=== PATIENT | male | born 1995 | race Caucasian/White ===

== ENCOUNTER 2016-04-05 13:36 | Outpatient (CLI) ==
[2015-10-10 09:08] VITALS: BMI 27.8
[2016-04-05 13:49] LABS: HEMATOCRIT 36.2 % (42.0-52.0); MEAN CORPUSCULAR HEMOGLOBIN 29.6 pg (27.0-31.0); MEAN CORPUSCULAR HGB CONC 33.1 (31.8-35.4); MEAN CORPUSCULAR VOLUME 89.2 fl (80.0-94.0); RED BLOOD COUNT 4.06 10^6/ul (4.70-6.10); WHITE BLOOD COUNT 9.29 K/ul (4.2-10.2)
[2016-04-05 14:05] LABS: ALBUMIN 4.1 g/dL (3.4-5.0); ANION GAP 14.7; BUN/CREATININE RATIO 14.18; CALCIUM 10.1 mg/dL (8.2-10.2); CREATININE 1.48 mg/dL (0.60-1.10); MAGNESIUM 1.8 mg/dL (1.5-2.3); PHOSPHORUS 3.3 mg/dL (2.5-4.9); POTASSIUM 4.7 mmol/L (3.5-5.1)
== END 2016-04-05 13:37 | disposition home or self-care (01) ==
LOC: LAB 13:36
PROVIDERS: ATTEND Registered Nurse
DX: Z94.0 Kidney transplant status (principal)
CPT/HCPCS: 36415; 80069; 80197; 83735; 85027

== ENCOUNTER 2016-05-10 09:40 | Outpatient (CLI) ==
[2015-10-10 09:08] VITALS: BMI 27.8
[2016-05-10 10:17] LABS: HEMATOCRIT 35.2 % (42.0-52.0); HEMOGLOBIN 11.5 g/dl (14.0-18.0); MEAN CORPUSCULAR HEMOGLOBIN 29.2 pg (27.0-31.0); MEAN CORPUSCULAR HGB CONC 32.7 (31.8-35.4); MEAN CORPUSCULAR VOLUME 89.3 fl (80.0-94.0); RED BLOOD COUNT 3.94 10^6/ul (4.70-6.10); WHITE BLOOD COUNT 9.89 K/ul (4.2-10.2)
[2016-05-10 10:25] LABS: ALBUMIN 4.2 g/dL (3.4-5.0); BUN/CREATININE RATIO 16.86; CALCIUM 10.1 mg/dL (8.2-10.2); CREATININE 2.55 mg/dL (0.60-1.10); PHOSPHORUS 3.7 mg/dL (2.5-4.9)
== END 2016-05-10 09:41 | disposition home or self-care (01) ==
LOC: LAB 09:40
PROVIDERS: ATTEND Registered Nurse
DX: Z94.0 Kidney transplant status (principal)
CPT/HCPCS: 36415; 80069; 80197; 83735; 85027

== ENCOUNTER 2016-05-31 11:31 | Outpatient (CLI) ==
[2015-10-10 09:08] VITALS: BMI 27.8
[2016-05-31 12:31] LABS: ALBUMIN 3.9 g/dL (3.4-5.0); ANION GAP 13.3; BUN/CREATININE RATIO 17.21; CALCIUM 9.7 mg/dL (8.2-10.2); CREATININE 1.51 mg/dL (0.60-1.10); MAGNESIUM 2.1 mg/dL (1.5-2.3); PHOSPHORUS 3.4 mg/dL (2.5-4.9); POTASSIUM 4.3 mmol/L (3.5-5.1)
[2016-05-31 12:33] LABS: HEMATOCRIT 36.1 % (42.0-52.0); HEMOGLOBIN 11.9 g/dl (14.0-18.0); MEAN CORPUSCULAR HEMOGLOBIN 29.4 pg (27.0-31.0); MEAN CORPUSCULAR VOLUME 89.1 fl (80.0-94.0); RED BLOOD COUNT 4.05 10^6/ul (4.70-6.10); WHITE BLOOD COUNT 5.98 K/ul (4.2-10.2)
== END 2016-05-31 11:32 | disposition home or self-care (01) ==
LOC: LAB 11:31
PROVIDERS: ATTEND Registered Nurse
DX: Z94.0 Kidney transplant status (principal)
CPT/HCPCS: 36415; 80069; 80197; 83735; 85027

== ENCOUNTER 2016-06-11 11:28 | Outpatient (CLI) ==
[2015-10-10 09:08] VITALS: BMI 27.8
== END 2016-06-11 11:29 | disposition home or self-care (01) ==
LOC: LAB 11:28
PROVIDERS: ATTEND Internal Medicine Nephrology
DX: Z94.0 Kidney transplant status (principal); Z92.25 Personal history of immunosuppression therapy
CPT/HCPCS: 36415; 87799

== ENCOUNTER 2016-07-16 12:10 | Outpatient (CLI) ==
[2015-10-10 09:08] VITALS: BMI 27.8
[2016-07-16 14:31] LABS: BASOPHILS # (AUTO) 0.1 K/uL (0-0.2); BASOPHILS % (AUTO) 0.6 % (0.0-3.0); EOSINOPHILS # (AUTO) 0.3 K/ul (0.0-0.7); EOSINOPHILS % (AUTO) 3.2 % (0.0-7.0); HEMATOCRIT 37.3 % (42.0-52.0); HEMOGLOBIN 12.8 g/dl (14.0-18.0); IMMATURE GRANULOCYTE % (AUTO) 0.3 % (0.0-5.0); LYMPHOCYTES # (AUTO) 3.2 K/uL (0.60-3.4); LYMPHOCYTES % (AUTO) 33.7 (10.0-50.0); MEAN CORPUSCULAR HEMOGLOBIN 30.4 pg (27.0-31.0); MEAN CORPUSCULAR HGB CONC 34.3 (31.8-35.4); MEAN CORPUSCULAR VOLUME 88.6 fl (80.0-94.0); MONOCYTES # (AUTO) 0.8 K/uL (0.4-2.0); MONOCYTES % (AUTO) 8.3 (0-10); NEUTROPHILS % (AUTO) 53.9; PLATELET COUNT 262 10^3/uL (140-440); RED BLOOD COUNT 4.21 10^6/ul (4.70-6.10); WHITE BLOOD COUNT 9.37 K/ul (4.2-10.2)
[2016-07-16 14:47] LABS: ANION GAP 13.6; BUN/CREATININE RATIO 18.63; CALCIUM 10.1 mg/dL (8.2-10.2); CREATININE 1.61 mg/dL (0.60-1.10); PHOSPHORUS 3.8 mg/dL (2.5-4.9); POTASSIUM 4.6 mmol/L (3.5-5.1)
== END 2016-07-16 12:11 | disposition home or self-care (01) ==
LOC: LAB 12:10
PROVIDERS: ATTEND Internal Medicine Nephrology
DX: Z94.0 Kidney transplant status (principal); N39.0 Urinary tract infection, site not specified; Z92.25 Personal history of immunosuppression therapy
CPT/HCPCS: 36415; 80048; 80197; 83735; 84100; 85025; 87799

== ENCOUNTER 2016-08-20 11:57 | Outpatient (CLI) ==
[2015-10-10 09:08] VITALS: BMI 27.8
[2016-08-20 12:44] LABS: BASOPHILS % (AUTO) 0.4 % (0.0-3.0); EOSINOPHILS # (AUTO) 0.4 K/ul (0.0-0.7); EOSINOPHILS % (AUTO) 3.2 % (0.0-7.0); HEMATOCRIT 33.8 % (42.0-52.0); HEMOGLOBIN 11.6 g/dl (14.0-18.0); IMMATURE GRANULOCYTE % (AUTO) 0.3 % (0.0-5.0); LYMPHOCYTES % (AUTO) 46.5 (10.0-50.0); MEAN CORPUSCULAR HEMOGLOBIN 30.2 pg (27.0-31.0); MEAN CORPUSCULAR HGB CONC 34.3 (31.8-35.4); MONOCYTES # (AUTO) 0.7 K/uL (0.4-2.0); MONOCYTES % (AUTO) 6.4 (0-10); NEUTROPHILS # (AUTO) 4.7 K/ul (2.0-6.9); NEUTROPHILS % (AUTO) 43.2; PLATELET COUNT 242 10^3/uL (140-440); RED BLOOD COUNT 3.84 10^6/ul (4.70-6.10); WHITE BLOOD COUNT 10.82 K/ul (4.2-10.2)
[2016-08-20 12:46] LABS: BILIRUBIN,URINE Negative (NEGATIVE); KETONES,URINE Negative (NEGATIVE); LEUKOCYTE ESTERASE ,URINE Negative (NEGATIVE); NITRITE,URINE Negative (NEGATIVE); PH,URINE 5.5 (5-9); PROTEIN,URINE 1+ (NEGATIVE); URINE, BLOOD Negative (NEGATIVE)
[2016-08-20 12:48] LABS: ADD URINE MICROSCOPIC YES
[2016-08-20 13:07] LABS: ANION GAP 15.8; BUN/CREATININE RATIO 11.76; CALCIUM 9.8 mg/dL (8.2-10.2); CREATININE 1.53 mg/dL (0.60-1.10); MAGNESIUM 1.8 mg/dL (1.5-2.3); PHOSPHORUS 3.2 mg/dL (2.5-4.9); POTASSIUM 3.8 mmol/L (3.5-5.1)
== END 2016-08-20 11:58 | disposition home or self-care (01) ==
LOC: LAB 11:57
PROVIDERS: ATTEND Internal Medicine Nephrology
DX: Z94.0 Kidney transplant status (principal); N39.0 Urinary tract infection, site not specified; Z92.25 Personal history of immunosuppression therapy
CPT/HCPCS: 36415; 80048; 80197; 81001; 83735; 84100; 85025; 87086; 87799

== ENCOUNTER 2016-09-27 07:53 | Outpatient (CLI) ==
[2015-10-10 09:08] VITALS: BMI 27.8
[2016-09-27 08:28] LABS: BASOPHILS # (AUTO) 0.1 K/uL (0-0.2); BASOPHILS % (AUTO) 0.5 % (0.0-3.0); EOSINOPHILS # (AUTO) 0.5 K/ul (0.0-0.7); EOSINOPHILS % (AUTO) 3.2 % (0.0-7.0); HEMATOCRIT 33.6 % (42.0-52.0); HEMOGLOBIN 11.5 g/dl (14.0-18.0); IMMATURE GRANULOCYTE % (AUTO) 0.7 % (0.0-5.0); LYMPHOCYTES % (AUTO) 27.4 (10.0-50.0); MEAN CORPUSCULAR HEMOGLOBIN 30.1 pg (27.0-31.0); MEAN CORPUSCULAR HGB CONC 34.2 (31.8-35.4); MONOCYTES # (AUTO) 1.4 K/uL (0.4-2.0); MONOCYTES % (AUTO) 9.5 (0-10); NEUTROPHILS # (AUTO) 8.5 K/ul (2.0-6.9); NEUTROPHILS % (AUTO) 58.7; PLATELET COUNT 265 10^3/uL (140-440); RED BLOOD COUNT 3.82 10^6/ul (4.70-6.10)
[2016-09-27 08:35] LABS: BILIRUBIN,URINE Negative (NEGATIVE); KETONES,URINE Negative (NEGATIVE); LEUKOCYTE ESTERASE ,URINE Negative (NEGATIVE); NITRITE,URINE Negative (NEGATIVE); PROTEIN,URINE 2+ (NEGATIVE); URINE, BLOOD Negative (NEGATIVE)
[2016-09-27 08:36] LABS: ADD URINE MICROSCOPIC YES
[2016-09-27 08:46] LABS: ANION GAP 19.7; BUN/CREATININE RATIO 17.54; CALCIUM 9.9 mg/dL (8.2-10.2); CREATININE 2.28 mg/dL (0.60-1.10); MAGNESIUM 2.1 mg/dL (1.5-2.3); PHOSPHORUS 3.9 mg/dL (2.5-4.9); POTASSIUM 4.7 mmol/L (3.5-5.1)
[2016-09-27 09:06] LABS: BACTERIA,URINE TRACE (NOT PRESENT)
== END 2016-09-27 07:54 | disposition home or self-care (01) ==
LOC: LAB 07:53
PROVIDERS: ATTEND Internal Medicine Nephrology
DX: Z94.0 Kidney transplant status (principal); N39.0 Urinary tract infection, site not specified; Z92.25 Personal history of immunosuppression therapy
CPT/HCPCS: 36415; 80048; 80197; 81001; 83735; 84100; 85025; 87086; 87799

== ENCOUNTER 2016-10-04 07:49 | Outpatient (CLI) ==
[2015-10-10 09:08] VITALS: BMI 27.8
[2016-10-04 08:27] LABS: BASOPHILS # (AUTO) 0.1 K/uL (0-0.2); BASOPHILS % (AUTO) 0.4 % (0.0-3.0); EOSINOPHILS # (AUTO) 0.6 K/ul (0.0-0.7); HEMATOCRIT 32.1 % (42.0-52.0); HEMOGLOBIN 11.1 g/dl (14.0-18.0); IMMATURE GRANULOCYTE % (AUTO) 0.6 % (0.0-5.0); LYMPHOCYTES # (AUTO) 4.6 K/uL (0.60-3.4); LYMPHOCYTES % (AUTO) 33.2 (10.0-50.0); MEAN CORPUSCULAR HEMOGLOBIN 30.7 pg (27.0-31.0); MEAN CORPUSCULAR HGB CONC 34.6 (31.8-35.4); MEAN CORPUSCULAR VOLUME 88.7 fl (80.0-94.0); MONOCYTES # (AUTO) 1.2 K/uL (0.4-2.0); MONOCYTES % (AUTO) 8.6 (0-10); NEUTROPHILS # (AUTO) 7.4 K/ul (2.0-6.9); NEUTROPHILS % (AUTO) 53.2; PLATELET COUNT 233 10^3/uL (140-440); RED BLOOD COUNT 3.62 10^6/ul (4.70-6.10); WHITE BLOOD COUNT 13.82 K/ul (4.2-10.2)
[2016-10-04 08:40] LABS: BILIRUBIN,URINE Negative (NEGATIVE); KETONES,URINE Negative (NEGATIVE); LEUKOCYTE ESTERASE ,URINE Negative (NEGATIVE); NITRITE,URINE Negative (NEGATIVE); PH,URINE 5.5 (5-9); PROTEIN,URINE 2+ (NEGATIVE); URINE, BLOOD Negative (NEGATIVE)
[2016-10-04 08:46] LABS: ADD URINE MICROSCOPIC YES
[2016-10-04 08:55] LABS: ANION GAP 15.7; BUN/CREATININE RATIO 21.54; CALCIUM 9.9 mg/dL (8.2-10.2); CREATININE 1.81 mg/dL (0.60-1.10); POTASSIUM 4.7 mmol/L (3.5-5.1)
== END 2016-10-04 07:50 | disposition home or self-care (01) ==
LOC: LAB 07:49
PROVIDERS: ATTEND Internal Medicine Nephrology
DX: Z94.0 Kidney transplant status (principal); N39.0 Urinary tract infection, site not specified; Z92.25 Personal history of immunosuppression therapy
CPT/HCPCS: 36415; 80048; 81001; 85025; 87086

== ENCOUNTER 2016-11-29 07:31 | Outpatient (CLI) ==
[2015-10-10 09:08] VITALS: BMI 27.8
[2016-11-29 08:11] LABS: BASOPHILS # (AUTO) 0.1 K/uL (0-0.2); BASOPHILS % (AUTO) 0.5 % (0.0-3.0); EOSINOPHILS # (AUTO) 0.4 K/ul (0.0-0.7); EOSINOPHILS % (AUTO) 2.6 % (0.0-7.0); HEMATOCRIT 35.7 % (42.0-52.0); HEMOGLOBIN 12.2 g/dl (14.0-18.0); IMMATURE GRANULOCYTE % (AUTO) 1.2 % (0.0-5.0); LYMPHOCYTES # (AUTO) 4.8 K/uL (0.60-3.4); LYMPHOCYTES % (AUTO) 31.3 (10.0-50.0); MEAN CORPUSCULAR HEMOGLOBIN 30.2 pg (27.0-31.0); MEAN CORPUSCULAR HGB CONC 34.2 (31.8-35.4); MEAN CORPUSCULAR VOLUME 88.4 fl (80.0-94.0); MONOCYTES # (AUTO) 1.3 K/uL (0.4-2.0); MONOCYTES % (AUTO) 8.3 (0-10); NEUTROPHILS # (AUTO) 8.6 K/ul (2.0-6.9); NEUTROPHILS % (AUTO) 56.1; PLATELET COUNT 235 10^3/uL (140-440); RED BLOOD COUNT 4.04 10^6/ul (4.70-6.10); WHITE BLOOD COUNT 15.26 K/ul (4.2-10.2)
[2016-11-29 08:29] LABS: ANION GAP 16.3; BUN/CREATININE RATIO 17.8; CALCIUM 9.9 mg/dL (8.2-10.2); CREATININE 1.91 mg/dL (0.60-1.10); MAGNESIUM 1.8 mg/dL (1.7-2.2); PHOSPHORUS 4.3 mg/dL (2.5-4.9); POTASSIUM 4.3 mmol/L (3.5-5.1)
[2016-11-29 08:40] LABS: BILIRUBIN,URINE Negative (NEGATIVE); KETONES,URINE Negative (NEGATIVE); LEUKOCYTE ESTERASE ,URINE Negative (NEGATIVE); NITRITE,URINE Negative (NEGATIVE); PH,URINE 5.5 (5-9); PROTEIN,URINE 2+ (NEGATIVE); URINE, BLOOD Trace-intact (NEGATIVE)
[2016-11-29 08:44] LABS: ADD URINE MICROSCOPIC YES
[2016-11-30 08:12] LABS: PROTEIN, TOTAL, URINE 64.7 mg/dL (Not Estab.)
== END 2016-11-29 07:32 | disposition home or self-care (01) ==
LOC: LAB 07:31
PROVIDERS: ATTEND Internal Medicine Nephrology
DX: Z94.0 Kidney transplant status (principal); N39.0 Urinary tract infection, site not specified; Z92.25 Personal history of immunosuppression therapy
CPT/HCPCS: 36415; 80048; 80197; 81001; 82570; 83735; 84100; 85025; 87086; 87799

== ENCOUNTER 2017-01-03 07:37 | Outpatient (CLI) ==
[2015-10-10 09:08] VITALS: BMI 27.8
[2017-01-03 08:27] LABS: BASOPHILS # (AUTO) 0.1 K/uL (0-0.2); BASOPHILS % (AUTO) 0.5 % (0.0-3.0); EOSINOPHILS # (AUTO) 0.4 K/ul (0.0-0.7); EOSINOPHILS % (AUTO) 2.6 % (0.0-7.0); HEMATOCRIT 34.5 % (42.0-52.0); IMMATURE GRANULOCYTE % (AUTO) 1.3 % (0.0-5.0); LYMPHOCYTES # (AUTO) 5.2 K/uL (0.60-3.4); LYMPHOCYTES % (AUTO) 32.6 (10.0-50.0); MEAN CORPUSCULAR HEMOGLOBIN 30.7 pg (27.0-31.0); MEAN CORPUSCULAR HGB CONC 34.8 (31.8-35.4); MEAN CORPUSCULAR VOLUME 88.2 fl (80.0-94.0); MONOCYTES # (AUTO) 1.3 K/uL (0.4-2.0); MONOCYTES % (AUTO) 8.1 (0-10); NEUTROPHILS # (AUTO) 8.8 K/ul (2.0-6.9); NEUTROPHILS % (AUTO) 54.9; PLATELET COUNT 240 10^3/uL (140-440); RED BLOOD COUNT 3.91 10^6/ul (4.70-6.10); WHITE BLOOD COUNT 15.95 K/ul (4.2-10.2)
[2017-01-03 08:31] LABS: BILIRUBIN,URINE Negative (NEGATIVE); KETONES,URINE Negative (NEGATIVE); LEUKOCYTE ESTERASE ,URINE Negative (NEGATIVE); NITRITE,URINE Negative (NEGATIVE); PH,URINE 5.5 (5-9); PROTEIN,URINE 2+ (NEGATIVE); URINE, BLOOD Trace-intact (NEGATIVE)
[2017-01-03 08:36] LABS: ADD URINE MICROSCOPIC YES
[2017-01-03 08:48] LABS: BUN/CREATININE RATIO 19.25; CALCIUM 9.8 mg/dL (8.2-10.2); CREATININE 1.61 mg/dL (0.60-1.10); MAGNESIUM 1.7 mg/dL (1.7-2.2); PHOSPHORUS 3.9 mg/dL (2.5-4.9); URIC ACID 6.6 mg/dL (2.6-7.2)
[2017-01-04 10:42] LABS: CREATININE, URINE 117.5 mg/dL (Not Estab.); PROTEIN, TOTAL, URINE 87.9 mg/dL (Not Estab.)
== END 2017-01-03 07:38 | disposition home or self-care (01) ==
LOC: LAB 07:37
PROVIDERS: ATTEND Hospitalist
DX: Z94.0 Kidney transplant status (principal); N39.0 Urinary tract infection, site not specified; Z92.25 Personal history of immunosuppression therapy; E55.9 Vitamin D deficiency, unspecified; E21.3 Hyperparathyroidism, unspecified; E78.5 Hyperlipidemia, unspecified
CPT/HCPCS: 36415; 80048; 80197; 81001; 82570; 83735; 83970; 84100; 84550; 85025; 87086; 87799

== ENCOUNTER 2017-03-06 10:34 | Outpatient (CLI) ==
[2015-10-10 09:08] VITALS: BMI 27.8
[2017-03-06 11:02] LABS: BASOPHILS # (AUTO) 0.1 K/uL (0-0.2); BASOPHILS % (AUTO) 0.5 % (0.0-3.0); EOSINOPHILS # (AUTO) 0.3 K/ul (0.0-0.7); EOSINOPHILS % (AUTO) 2.3 % (0.0-7.0); HEMATOCRIT 33.6 % (42.0-52.0); HEMOGLOBIN 11.5 g/dl (14.0-18.0); IMMATURE GRANULOCYTE % (AUTO) 0.5 % (0.0-5.0); LYMPHOCYTES # (AUTO) 5.1 K/uL (0.60-3.4); LYMPHOCYTES % (AUTO) 41.1 (10.0-50.0); MEAN CORPUSCULAR HGB CONC 34.2 (31.8-35.4); MEAN CORPUSCULAR VOLUME 90.6 fl (80.0-94.0); MONOCYTES # (AUTO) 0.8 K/uL (0.4-2.0); MONOCYTES % (AUTO) 6.5 (0-10); NEUTROPHILS % (AUTO) 49.1; PLATELET COUNT 231 10^3/uL (140-440); RED BLOOD COUNT 3.71 10^6/ul (4.70-6.10); WHITE BLOOD COUNT 12.29 K/ul (4.2-10.2)
[2017-03-06 11:05] LABS: ADD URINE MICROSCOPIC NO; BILIRUBIN,URINE Negative (NEGATIVE); KETONES,URINE Negative (NEGATIVE); LEUKOCYTE ESTERASE ,URINE Negative (NEGATIVE); NITRITE,URINE Negative (NEGATIVE); PH,URINE 5.5 (5-9); PROTEIN,URINE Negative (NEGATIVE); URINE, BLOOD Negative (NEGATIVE)
[2017-03-06 11:55] LABS: BUN/CREATININE RATIO 18.9; CHOL/HDL RATIO 3.5 (4.5-6.4); CREATININE 1.64 mg/dL (0.60-1.10); PHOSPHORUS 3.8 mg/dL (2.5-4.9); URIC ACID 7.6 mg/dL (2.6-7.2)
== END 2017-03-06 10:35 | disposition home or self-care (01) ==
LOC: LAB 10:34
PROVIDERS: ATTEND Hospitalist
DX: Z94.0 Kidney transplant status (principal); N39.0 Urinary tract infection, site not specified; Z92.25 Personal history of immunosuppression therapy; E55.9 Vitamin D deficiency, unspecified; E21.3 Hyperparathyroidism, unspecified; E78.5 Hyperlipidemia, unspecified
CPT/HCPCS: 36415; 80048; 80061; 80197; 81001; 82306; 82570; 83735; 83970; 84100; 84156; 84550; 85025; 87086; 87799

== ENCOUNTER 2017-04-08 10:25 | Outpatient (CLI) ==
[2015-10-10 09:08] VITALS: BMI 27.8
== END 2017-04-08 10:26 | disposition home or self-care (01) ==
LOC: LAB 10:25
PROVIDERS: ATTEND Hospitalist
DX: Z94.0 Kidney transplant status (principal); N39.0 Urinary tract infection, site not specified; Z92.25 Personal history of immunosuppression therapy; E55.9 Vitamin D deficiency, unspecified; E21.3 Hyperparathyroidism, unspecified; E78.5 Hyperlipidemia, unspecified
CPT/HCPCS: 36415; 80048; 80061; 80197; 81001; 82306; 82570; 83735; 83970; 84100; 84550; 85025; 87086; 87799

== ENCOUNTER 2017-04-28 11:15 | Outpatient (CLI) ==
[2015-10-10 09:08] VITALS: BMI 27.8
== END 2017-04-28 11:16 | disposition home or self-care (01) ==
LOC: LAB 11:15
PROVIDERS: ATTEND Hospitalist
DX: Z94.0 Kidney transplant status (principal); N39.0 Urinary tract infection, site not specified; Z92.25 Personal history of immunosuppression therapy; E55.9 Vitamin D deficiency, unspecified; E21.3 Hyperparathyroidism, unspecified; E78.5 Hyperlipidemia, unspecified
CPT/HCPCS: 36415; 80048; 80061; 80197; 81001; 82306; 82570; 83735; 83970; 84100; 84156; 84550; 85025; 87086; 87799

== ENCOUNTER 2017-05-12 13:12 | Outpatient (CLI) ==
[2015-10-10 09:08] VITALS: BMI 27.8
== END 2017-05-12 13:13 | disposition home or self-care (01) ==
LOC: LAB 13:12
PROVIDERS: ATTEND Hospitalist
DX: Z94.0 Kidney transplant status (principal); I15.1 Hypertension secondary to other renal disorders; N28.89 Other specified disorders of kidney and ureter; N39.0 Urinary tract infection, site not specified; Z92.25 Personal history of immunosuppression therapy
CPT/HCPCS: 36415; 81001; 82570

== ENCOUNTER 2017-06-23 11:41 | Outpatient (CLI) ==
[2015-10-10 09:08] VITALS: BMI 27.8
== END 2017-06-23 11:42 | disposition home or self-care (01) ==
LOC: LAB 11:41
PROVIDERS: ATTEND Hospitalist
DX: Z94.0 Kidney transplant status (principal); N39.0 Urinary tract infection, site not specified; Z92.25 Personal history of immunosuppression therapy
CPT/HCPCS: 36415; 80048; 80197; 81001; 82570; 83735; 84100; 85025; 87086; 87799

== ENCOUNTER 2017-07-25 08:37 | Outpatient (CLI) ==
[2015-10-10 09:08] VITALS: BMI 27.8
== END 2017-07-25 08:38 | disposition home or self-care (01) ==
LOC: LAB 08:37
PROVIDERS: ATTEND Nurse Practitioner
DX: N18.9 Chronic kidney disease, unspecified (principal); Z94.0 Kidney transplant status; E55.9 Vitamin D deficiency, unspecified; I10 Essential (primary) hypertension
CPT/HCPCS: 36415; 80053; 80061; 80197; 81001; 82306; 82570; 82607; 82728; 82746; 83036; 83540; 83550; 83735; 83970; 84100; 84156; 84550; 85027

== ENCOUNTER 2017-11-12 08:28 | Outpatient (CLI) ==
[2015-10-10 09:08] VITALS: BMI 27.8
== END 2017-11-12 08:29 | disposition home or self-care (01) ==
LOC: LAB 08:28
PROVIDERS: ATTEND Internal Medicine Nephrology
DX: Z94.0 Kidney transplant status (principal); Z79.899 Other long term (current) drug therapy; N39.0 Urinary tract infection, site not specified; D89.9 Disorder involving the immune mechanism, unspecified; N18.9 Chronic kidney disease, unspecified; E55.9 Vitamin D deficiency, unspecified; E78.5 Hyperlipidemia, unspecified; E21.3 Hyperparathyroidism, unspecified
CPT/HCPCS: 36415; 80048; 80061; 80197; 81001; 82306; 82570; 83735; 83970; 84100; 84156; 84550; 85025; 87086; 87799

== ENCOUNTER 2017-12-03 06:53 | Outpatient (CLI) ==
[2015-10-10 09:08] VITALS: BMI 27.8
--- NOTE | 2017-12-03 15:14 | ECHO2D ---
Date of Exam: 12/03/17 Ordering Physician: DR. EUSEBIO LUCAS Room #: OP Reason for Echo: SOB, KIDNEY TRANSPLANT 2012 M-Mode Normal Adult Results LV Dimensions Normal Adult Results AoV Opening excursions >1.6 >1.6 LVEDD-base- 3.5-5.8 4.5 Ao root dimensions 2.0-3.7 3.4 LVESD-base- 3.1-4.6 L. Atrium dimensions 1.9-3.8 3.6 Post. Wall thickness 0.8-1.1 1.2 IV septum (thickness) 0.7-1.2 1.2 Post. Wall excursion 0.72-1.3 NORMAL Septal motion NORMAL Systolic motion R. Ventricular cavity 1.5-2.0 NORMAL LVEF 60% 54% Paradoxical septal wall motion NORMAL 2-D : 2-D M Mode Echocardiogram was performed using apical four chamber and left parasternal long and short axis views. Mitral, tricuspid and aortic valves appear to be normal. Contractility of the left ventricle seems to be normal, so is the cavity size. Left atrial cavity size and aortic root appear to be normal. There is no pericardial effusion. There is no thrombus noted in the left ventricular or left aortic cavity. No mitral valve prolapse noted. M-MODE: MV: NORMAL AV: NORMAL TV: NORMAL PV: CHAMBER SIZE: NORMAL WALL MOTION: NORMAL PERICARDIUM: NORMAL INTERPRETATION: 1. BORDERLINE LEFT VENTRICULAR HYPERTROPHY 2. NORMAL VALVES 3. NORMAL LEFT VENTRICULAR CONTRACTILITY MTDD
== END 2017-12-03 06:54 | disposition home or self-care (01) ==
LOC: CAR 06:53
PROVIDERS: ATTEND Hospitalist
DX: Z94.0 Kidney transplant status (principal); Z79.52 Long term (current) use of systemic steroids; Z92.25 Personal history of immunosuppression therapy; R06.02 Shortness of breath; Z86.69 Personal history of other diseases of the nervous system and sense organs

== ENCOUNTER 2018-01-14 07:31 | Outpatient (CLI) ==
[2015-10-10 09:08] VITALS: BMI 27.8
== END 2018-01-14 07:32 | disposition home or self-care (01) ==
LOC: LAB 07:31
PROVIDERS: ATTEND Hospitalist
DX: Z94.0 Kidney transplant status (principal); N39.0 Urinary tract infection, site not specified; Z92.25 Personal history of immunosuppression therapy
CPT/HCPCS: 36415; 80048; 80197; 81001; 82570; 83735; 84100; 84156; 85025; 87086; 87799

== ENCOUNTER 2018-04-07 12:38 | Outpatient (CLI) ==
[2015-10-10 09:08] VITALS: BMI 27.8
== END 2018-04-07 12:39 | disposition home or self-care (01) ==
LOC: LAB 12:38
PROVIDERS: ATTEND Hospitalist
DX: Z94.0 Kidney transplant status (principal); N18.9 Chronic kidney disease, unspecified; E55.9 Vitamin D deficiency, unspecified; E78.5 Hyperlipidemia, unspecified; E21.3 Hyperparathyroidism, unspecified
CPT/HCPCS: 36415; 80048; 80061; 80197; 81001; 82306; 82570; 83735; 83970; 84100; 84156; 84550; 85025; 87086

== ENCOUNTER 2018-05-15 14:14 | Outpatient (CLI) ==
[2015-10-10 09:08] VITALS: BMI 27.8
== END 2018-05-15 14:15 | disposition home or self-care (01) ==
LOC: LAB 14:14
PROVIDERS: ATTEND Hospitalist
DX: Z94.0 Kidney transplant status (principal); Z79.899 Other long term (current) drug therapy; N39.0 Urinary tract infection, site not specified
CPT/HCPCS: 36415; 80048; 80197; 81001; 82570; 83735; 84100; 84156; 85025; 87086

== ENCOUNTER 2018-07-16 16:02 | Outpatient (CLI) ==
[2015-10-10 09:08] VITALS: BMI 27.8
== END 2018-07-16 16:03 | disposition home or self-care (01) ==
LOC: LAB 16:02
PROVIDERS: ATTEND Internal Medicine Nephrology
DX: Z94.0 Kidney transplant status (principal); Z79.899 Other long term (current) drug therapy; N39.0 Urinary tract infection, site not specified; N18.9 Chronic kidney disease, unspecified; E55.9 Vitamin D deficiency, unspecified; E78.5 Hyperlipidemia, unspecified; E21.3 Hyperparathyroidism, unspecified; M89.9 Disorder of bone, unspecified; E83.9 Disorder of mineral metabolism, unspecified
CPT/HCPCS: 36415; 80048; 80061; 80197; 81001; 82306; 82570; 83735; 83970; 84100; 84550; 85025; 87086

== ENCOUNTER 2018-07-23 13:53 | Outpatient (CLI) ==
[2015-10-10 09:08] VITALS: BMI 27.8
--- NOTE | 2018-07-23 15:48 | DI ---
EXAM: RIGHT FOOT, 3 VIEWS HISTORY: Foot pain FINDINGS: Bone and joint structures appear normal. No displaced fracture or joint dislocation is s een. There is no joint effusion. Soft tissues within normal limits. IMPRESSION: Within normal limits.
== END 2018-07-23 13:54 | disposition home or self-care (01) ==
LOC: RAD 13:53
PROVIDERS: ATTEND Family Medicine
DX: E79.0 Hyperuricemia without signs of inflammatory arthritis and tophaceous disease (principal); M79.676 Pain in unspecified toe(s)

== ENCOUNTER 2018-10-16 10:10 | Outpatient (CLI) ==
[2015-10-10 09:08] VITALS: BMI 27.8
== END 2018-10-16 10:11 | disposition home or self-care (01) ==
LOC: LAB 10:10
PROVIDERS: ATTEND Hospitalist
DX: Z94.0 Kidney transplant status (principal); Z79.899 Other long term (current) drug therapy; N39.0 Urinary tract infection, site not specified
CPT/HCPCS: 36415; 80053; 80197; 81001; 82570; 83735; 84100; 84156; 85025; 87086